=== PATIENT | female | born 1980 | race Caucasian/White ===

== ENCOUNTER → 2024-11-22 | Outpatient (CLI) | payer OTHER ==
[~2024-11-22] MED LIST: Benadryl 50 mg50 MG PO; CEPH500 PO; DIPH50 PO; FAMO20 PO
[2024-11-23 12:19] LABS: Stool Occult Bld Immuno 1 Negative (NEGATIVE); Stool Occult Bld Immuno 2 Negative (NEGATIVE)
== END ==
LOC: LAB 08:20 → LAB SHORT 08:20
PROVIDERS: Nurse Practitioner
DX: D50.9 Iron deficiency anemia, unspecified (principal)
CPT/HCPCS: 82274

== ENCOUNTER 2025-04-03 14:40 | Day surgery (SDC) | payer OTHER ==
[~2025-04-03] VITALS: Ht 162.6 cm; Wt 110.4 kg
[2025-04-03] VITALS (8 sets, daily range): BP systolic 119–132; BP diastolic 68–83
[~2025-04-03 14:40] MED LIST changes: +LEVOTHYROXINE137 M11 PO
[2025-04-03] MEDS ORDERED: FentaNYL Citrate 50 MCG/ML 2 ML Injection ONE (15:28)
[2025-04-03] MEDS ORDERED: Midazolam HCl 1MG / ML 2ML Vial ONE (15:28)
--- NOTE | 2025-04-03 15:36 | NUR ---
PRE OP NOTE PT A&OX4, BREATHING RA, VSS, NO COMPLAINTS. AT BEDSIDE. Ambulatory in Day Surgery Patient confirms NPO status and agrees with scheduled surgery. Pre-Op teaching done. Pt verbalizes understanding. PT DOES NOT ACCEPT BLOOD PRODUCTS FOR WORSHIP REASONS-
[2025-04-03] MEDS ORDERED: Dexamethasone Sod Phos 10 MG/ML 1ML VIAL ONE (16:13)
[2025-04-03] MEDS ORDERED: Ondansetron HCl 2 MG / ML 2ML Vial IV PRN (16:35)
[2025-04-03] MEDS ORDERED: FentaNYL Citrate 50 MCG/ML 2 ML Injection IV PRN ×2 (16:35)
[2025-04-03] MEDS ORDERED: Metoclopramide HCl 5MG / ML 2ML Vial IV PRN (16:35)
[2025-04-03] MEDS ORDERED: HYDROmorphone HCl/Pf 1MG SYR IV PRN ×2 (16:35)
[2025-04-03] MEDS ORDERED: Ondansetron HCl 2 MG / ML 2ML Vial ONE (16:44)
--- NOTE | 2025-04-03 18:02 | NUR ---
DISCHARGE NOTE PT A&OX4, BREATHING RA, VSS, TOLERATING PO FLUIDS. PT UP TO BR AND VOIDED 2X. MILD BLOODY DRAINAGE NOTED TO OSVALDO PAD. NEW OSVALDO PAD PROVIDED. Patient up to Ambulate independently. Gait steady. Discharge instructions reviewed with patient. Patient verbalizes understanding. Copy given to patient to take home. PT HAS NO C/O NAUSEA AND HAS MILD CRAMPING, TYLENOL GIVEN IN STEP. Discharged via wheelchair to private car for ride home. EJ IV REMOVED, PRESSURE HELD FOR 5 MINS WITH NO COMPLICATIONS.
== END 2025-04-03 17:58 | disposition home or self-care (01) ==
LOC: ORSCMMR 14:40 → ORD 16:00 → ORSCMMR 16:00
PROVIDERS: Obstetrics & Gynecology
PROC: 0UB98ZZ Excision of Uterus, Via Natural or Artificial Opening Endoscopic (ICD-10-PCS; principal; 2025-04-03 16:00)
DX: N93.9 Abnormal uterine and vaginal bleeding, unspecified (principal); N84.0 Polyp of corpus uteri; D50.9 Iron deficiency anemia, unspecified; R93.89 Abnormal findings on diagnostic imaging of other specified body structures; E06.3 Autoimmune thyroiditis; Z79.899 Other long term (current) drug therapy
CPT/HCPCS: 88305; A9270; J1100; J2250; J2405; J2704; J3010; J7120